=== PATIENT | male | born 1990 | race Caucasian/White ===

== ENCOUNTER 2017-12-26 15:23 | Inpatient (IN) | payer OTHER ==
[~2017-12-26] VITALS: Ht 198.1 cm; Wt 92.8 kg
[2017-12-26] MEDS ORDERED: SODIUM CHLORIDE 0.9% 1,000 ML IV ONE (15:34)
[2017-12-26] MEDS ORDERED: ACETAMINOPHEN 500 MG TABLET PO ONE (16:00)
[2017-12-26] MEDS ORDERED: MORPHINE SULFATE 4 MG/ML, 1ML IVPush PRN ×2 (16:00→16:30)
[2017-12-26] MEDS ORDERED: ONDANSETRON 2MG/ML, 2ML IVPush ONE (16:00)
[2017-12-26] MEDS ORDERED: SODIUM CHLORIDE 0.9% 1,000ML IVBOLUS ONE (16:00)
[2017-12-26] MEDS ORDERED: ONDANSETRON 2MG/ML, 2ML ONE (16:09)
[2017-12-26] MEDS ORDERED: ACETAMINOPHEN 500 MG TABLET ONE (16:09)
[2017-12-26 16:10] LABS: MEAN CORPUSCULAR HEMOGLOBIN 32.7 pg (27.5-34.5); MEAN CORPUSCULAR HGB CONC 34.1 g/dL (33.2-36.2); MEAN PLATELET VOLUME 7.5 fL (7.4-10.4); PLATELET COUNT 349 x10^3/uL (130-400); RED BLOOD COUNT 5.04 x10^6/uL (4.38-5.82)
[2017-12-26 16:11] LABS: ALBUMIN 3.9 g/dL (3.4-5.0); ANION GAP 10 mmol/L (5-15); CALCIUM 9.5 mg/dL (8.5-10.1); CHLORIDE 105 mmol/L (98-107); CREATININE 0.99 mg/dL (0.7-1.3)
[2017-12-26 16:38] LABS: BASOPHILS # (AUTO) 0.03 x10^3/uL (0-0.1); BASOPHILS % (AUTO) 0 % (0-1); EOSINOPHILS # (AUTO) 0.04 x10^3/uL (0-0.4); EOSINOPHILS % (AUTO) 0 % (1-7); LYMPHOCYTES # (AUTO) 2.17 x10^3/uL (1-3.4); LYMPHOCYTES % (AUTO) 13 % (22-44); MONOCYTES # (AUTO) 1.75 x10^3/uL (0.2-0.8); MONOCYTES % (AUTO) 11 % (2-9); NEUTROPHILS # (AUTO) 12.34 x10^3/uL (1.8-6.8); NEUTROPHILS % (AUTO) 76 % (42-75)
[2017-12-26 16:39] LABS: MD SCAN
[2017-12-26] MEDS ORDERED: OMNIPAQUE 350 MG/ML, 100ML BOTTLE ONE (16:56)
[2017-12-26] MEDS ORDERED: MORPHINE SULFATE 4 MG/ML, 1ML ONE (17:11)
[2017-12-26] MEDS ORDERED: CEFTRIAXONE PMX 1GM/50ML 50 ML ONE (17:23)
[2017-12-26] MEDS ORDERED: CEFTRIAXONE PMX 1GM/50ML 50 ML IVPB ONE (17:30)
[2017-12-26] MEDS ORDERED: BISACODYL 10 MG SUPP PR PRN (18:30)
[2017-12-26] MEDS: SODIUM CHLORIDE 0.9% 1,000 ML IV SCH (18:30)
[2017-12-26] MEDS ORDERED: morphine SULFATE 10 MG/ML, 1ML IVPush PRN (18:30)
[2017-12-26] MEDS ORDERED: ENALAPRILAT 1.25 MG/ML, 2ML IVPush PRN (18:30)
[2017-12-26] MEDS ORDERED: HYDROcodone/APAP 5/325 TABLET PO PRN (18:30)
[2017-12-26] MEDS ORDERED: ONDANSETRON 2MG/ML, 2ML IVPush PRN (18:30)
[2017-12-26] MEDS ORDERED: ONDANSETRON ODT 4 MG PO PRN (18:30)
[2017-12-26] MEDS ORDERED: ACETAMINOPHEN 325 MG TABLET PO PRN (18:30)
[2017-12-26] MEDS ORDERED: EPINEPHRINE 1 MG/ML, 1ML ONE (19:18)
[2017-12-26] MEDS ORDERED: BUPIVACAINE/PF 0.5% ONE (19:18)
[2017-12-26] MEDS ORDERED: DOCUSATE 100 MG CAPSULE PO SCH (21:00)
[2017-12-26] MEDS ORDERED: BUPIVACAINE/PF-EPI 0.5% 1:200K IM ONE (23:34)
[2017-12-26] MEDS ORDERED: PROPOFOL 10 MG/ML, 20ML ONE (23:35)
[2017-12-26] MEDS ORDERED: FENTANYL PF 250 MCG/5ML ONE (23:35)
[2017-12-26] MEDS ORDERED: MIDAZOLAM 1 MG/ML, 2ML ONE (23:35)
[2017-12-26] MEDS ORDERED: SUCCINYLCHOLINE 20 MG/ML, 10ML ONE (23:36)
[2017-12-26] MEDS ORDERED: ROCURONIUM 10MG/ML,5ML ONE (23:36)
[2017-12-27] MEDS ORDERED: MEPERIDINE/PF 25MG/0.5ML IVPush PRN
[2017-12-27] MEDS ORDERED: PROMETHAZINE 25 MG/ML, 1ML IV PRN
[2017-12-27] MEDS ORDERED: LABETALOL 5MG/ML, 20ML IV PRN
[2017-12-27] MEDS ORDERED: ONDANSETRON ODT 8 MG PO PRN
[2017-12-27] MEDS ORDERED: PROMETHAZINE 25 MG SUPP PR PRN
[2017-12-27] MEDS ORDERED: MORPHINE SULFATE 4 MG/ML, 1ML IVPush PRN
[2017-12-27] MEDS ORDERED: FENTANYL PF 100 MCG/2ML IV PRN
[2017-12-27] MEDS ORDERED: PROMETHAZINE 12.5 MG SUPP PR PRN
[2017-12-27] MEDS ORDERED: HYDROmorphone 1 MG/ML, 1ML IV PRN
[2017-12-27] MEDS ORDERED: OXYcodone 5 MG/5 ML ORAL.SOL UDC PO PRN
[2017-12-27] MEDS ORDERED: hydrALAzine 20 MG/ML, 1ML IV PRN
[2017-12-27] MEDS ORDERED: GLYCOPYRROLATE 0.4 MG/2 ML, 2ML ONE (00:10)
[2017-12-27] MEDS ORDERED: NEOSTIGMINE 1 MG/ML, 10ML ONE (00:10)
[2017-12-27] MEDS ORDERED: DEXAMETHASONE 4 MG/ML, 1ML ONE ×3 (00:13)
[2017-12-27] MEDS ORDERED: FENTANYL PF 100 MCG/2ML ONE ×2 (00:52→01:07)
[2017-12-27] MEDS ORDERED: OXYcodone 5 MG/5 ML ORAL.SOL UDC ONE (01:08)
[2017-12-27] MEDS ORDERED: MORPHINE SULFATE 4 MG/ML, 1ML ONE (01:27)
[2017-12-27] MEDS: SODIUM CHLORIDE 0.9% 1,000 ML IV SCH (02:34)
[2017-12-27] MEDS ORDERED: HYDROcodone/APAP 7.5-325MG/15ML UDC PO PRN (03:00)
[2017-12-27] MEDS ORDERED: PROMETHAZINE 25 MG/ML, 1ML IM PRN (03:00)
[2017-12-27 04:00] VITALS: BP 132/66
[2017-12-27] MEDS ORDERED: UNASYN MC SCH (04:00)
[2017-12-27 05:47] LABS: CHLORIDE 106 mmol/L (98-107)
[2017-12-27] MEDS: DEXAMETHASONE 4 MG/ML, 1ML IV SCH ×3 (05:47→19:35)
[2017-12-27 05:52] LABS: ANION GAP 6 mmol/L (5-15); CALCIUM 8.7 mg/dL (8.5-10.1); CREATININE 0.82 mg/dL (0.7-1.3)
[2017-12-27 05:59] LABS: MEAN CORPUSCULAR HEMOGLOBIN 32.9 pg (27.5-34.5); MEAN CORPUSCULAR HGB CONC 34.1 g/dL (33.2-36.2); MEAN CORPUSCULAR VOLUME 96.6 fL (81-97); MEAN PLATELET VOLUME 7.5 fL (7.4-10.4); PLATELET COUNT 292 x10^3/uL (130-400); RED BLOOD COUNT 4.52 x10^6/uL (4.38-5.82)
[2017-12-27 06:25] LABS: BASOPHILS % (AUTO) 0 % (0-1); EOSINOPHILS % (AUTO) 0 % (1-7); LYMPHOCYTES # (AUTO) 0.79 x10^3/uL (1-3.4); LYMPHOCYTES % (AUTO) 4 % (22-44); MD SCAN; MONOCYTES # (AUTO) 0.13 x10^3/uL (0.2-0.8); MONOCYTES % (AUTO) 1 % (2-9); NEUTROPHILS % (AUTO) 95 % (42-75)
[2017-12-27] MEDS ORDERED: CEFTRIAXONE MC SCH (07:30)
[2017-12-27] MEDS ORDERED: KETOROLAC 30 MG/1 ML IVPush PRN (07:30)
[2017-12-27] MEDS: CLINDAMYCIN PMX 600MG/50ML 50 ML IV SCH ×2 (07:34→16:04)
[2017-12-27] MEDS ORDERED: POLYETHYLENE GLYCOL 17 GM PACKET PO SCH (09:00)
[2017-12-27 14:52] VITALS: BP 125/70
[2017-12-27] MEDS ORDERED: CEFTRIAXONE PMX 1GM/50ML 50 ML IV SCH (17:30)
[2017-12-27] MEDS ORDERED: HYDR473S51 PO (19:25)
[2017-12-27] MEDS ORDERED: [UNRECOGNIZED DRUG - OTHER] (19:26)
[2017-12-27 20:00] VITALS: BP 128/77
[2017-12-28] MEDS ORDERED: CEFDINIR (23:20)
== END 2017-12-27 20:15 | disposition home or self-care (01) | DRG 854 ==
LOC: ED 17:05 → EDIP 17:36 → OBSVTOIN 17:36 → 4NOR 19:45 → CCU 12-27 02:20 → 4NOR 12-27 14:50
PROVIDERS: ADMIT Hospitalist; ATTEND Hospitalist
PROC: 0CTPXZZ Resection of Tonsils, External Approach (ICD-10-PCS; principal; 2017-12-27)
PROC: 0C9PXZZ Drainage of Tonsils, External Approach (ICD-10-PCS; 2017-12-27)
PROC: 0CJS8ZZ Inspection of Larynx, Via Natural or Artificial Opening Endoscopic (ICD-10-PCS; 2017-12-27)
DX: A41.9 Sepsis, unspecified organism (principal); J36 Peritonsillar abscess; F12.90 Cannabis use, unspecified, uncomplicated; F17.210 Nicotine dependence, cigarettes, uncomplicated; I10 Essential (primary) hypertension; K59.00 Constipation, unspecified; Z83.3 Family history of diabetes mellitus
CPT/HCPCS: 36415; 70491; 80048; 82040; 83605; 85025; 86308; 87040; 87081; 87147; 87880; 88304; 96361; 96374; 96375; J0171; J0696; J1100; J1885; J2250; J2405; J2704; J2710; J3010; J3490; Q9967; J0330; J2270; J7030

== ENCOUNTER 2017-12-28 23:13 | Emergency (ER) | payer SELFPAY ==
[~2017-12-28] VITALS: Ht 198.1 cm; Wt 96.7 kg
[~2017-12-28 23:13] MED LIST: HYDR473S51 PO; [UNRECOGNIZED DRUG - OTHER]
[2017-12-28 23:14] VITALS: BP 143/78
[2017-12-28] MEDS ORDERED: CEFDINIR (23:20)
[2017-12-28] MEDS ORDERED: ONDANSETRON ODT 4 MG ONE (23:37)
[2017-12-28] MEDS ORDERED: DIPHENHYDRAMINE 25 MG CAPSULE ONE (23:40)
[2017-12-28] MEDS ORDERED: FAMOTIDINE 20 MG TABLET ONE (23:40)
[2017-12-29] MEDS ORDERED: ONDANSETRON ODT 4 MG PO ONE
[2017-12-29] MEDS ORDERED: FAMOTIDINE 20 MG TABLET PO ONE
[2017-12-29] MEDS ORDERED: DIPHENHYDRAMINE 25 MG CAPSULE PO ONE
== END 2017-12-29 00:54 | disposition home or self-care (01) ==
LOC: ED 23:32
DX: L29.9 Pruritus, unspecified (principal); F12.129 Cannabis abuse with intoxication, unspecified; F17.210 Nicotine dependence, cigarettes, uncomplicated
CPT/HCPCS: 99284; Q0162; Q0163